=== PATIENT | male | born 1980 | race Caucasian/White ===

== ENCOUNTER 2017-11-22 03:14 | Emergency (ER) | payer OTHER ==
[2017-11-22] MEDS ORDERED: IPRATROPIUM 0.5MG/ALBUTEROL 2.5MG INH SOL UD 3ML (DUONEB)(J7620) As Ordered (04:43)
[2017-11-22] MEDS: IPRATROPIUM 0.5MG/ALBUTEROL 2.5MG INH SOL UD 3ML (DUONEB)(J7620) NEB (04:47)
[2017-11-22] MEDS: predniSONE 20 MG TAB PO (05:01)
== END 2017-11-22 06:01 | disposition home or self-care (01) ==
LOC: M ED 03:14
DX: J45.901 Unspecified asthma with (acute) exacerbation (principal); Z79.51 Long term (current) use of inhaled steroids; F17.210 Nicotine dependence, cigarettes, uncomplicated; F12.20 Cannabis dependence, uncomplicated
CPT/HCPCS: 94640

== ENCOUNTER 2018-04-13 06:34 | Emergency (ER) | payer OTHER ==
[2018-04-13] MEDS: KETOROLAC 60 MG/2 ML VIAL (J1885) IM (07:53)
[2018-04-13] MEDS: METHOCARBAMOL 500 MG TAB PO (07:53)
== END 2018-04-13 09:23 | disposition home or self-care (01) ==
LOC: M ED 06:34
DX: M54.9 Dorsalgia, unspecified (principal); J45.909 Unspecified asthma, uncomplicated; F41.9 Anxiety disorder, unspecified; F32.9 Major depressive disorder, single episode, unspecified; F17.200 Nicotine dependence, unspecified, uncomplicated; Z79.899 Other long term (current) drug therapy
CPT/HCPCS: J1885

== ENCOUNTER 2018-05-19 23:13 | Emergency (ER) | payer OTHER ==
[2018-05-20] MEDS: ALBUTEROL SULFATE 2.5 MG/0.5 ML INH NEB SOLN NEB (00:10)
[2018-05-20] MEDS: dexameTHASONE 20 MG/5 ML VIAL (J1100) IV (00:17)
== END 2018-05-20 01:24 | disposition home or self-care (01) ==
LOC: M ED 05-20 01:24
DX: J45.901 Unspecified asthma with (acute) exacerbation (principal); F17.200 Nicotine dependence, unspecified, uncomplicated; Z79.899 Other long term (current) drug therapy
CPT/HCPCS: J1100

== ENCOUNTER → 2018-09-13 | Outpatient (REF) | payer OTHER ==
[~2018-09-13] MED LIST: /LAMO10TA OR; /QUET10TA; ABIL10TA OR; ADV250INH INH; ALBU83IN INH; BENADRYL; BUSP10TA2 OR; CELE20TA OR; CHLO200T OR; DEPA250T3; DILA100C; EFFE150C OR; IBUP200C25 PO; INCR1INH; IPRATROPIUM/; KLON1TAB; LEVOTAB10; NASA1SPR; PRED20TA PO; PRIMA; PRIMATINE MIST INH; PROAAER10 INH; PROP10TAB OR; PROV90AE; QUET30TA; QUET30TA OR; ROBA500T PO; SERO400T; SERO400T OR; TRAZ100T; TRAZ50TA; TRIL600T OR; TRIM OR; VARE1TA OR; VENTAER; VENTAER IN; VICO5TAB
[2018-09-13 14:18] LABS: ALBUMIN 4.3 GM/DL (3.2-5.2); ALT/SGPT 101 U/L (12-78); BILIRUBIN,DIRECT < 0.1 MG/DL (0.0-0.2); BILIRUBIN,TOTAL 0.3 MG/DL (0.2-1.0); TOTAL PROTEIN 7.7 GM/DL (6.4-8.2)
== END ==
LOC: M SFHCPLAZ 10:52
PROVIDERS: ATTEND Family Medicine
DX: F10.10 Alcohol abuse, uncomplicated (principal)

== ENCOUNTER 2018-11-17 04:58 | Emergency (ER) | payer OTHER ==
[~2018-11-17] VITALS: Ht 180.3 cm; Wt 86.4 kg
[~2018-11-17 04:58] MED LIST changes: -/LAMO10TA OR; -/QUET10TA; +LAMI1TAB7 OR; +SERO1TAB
[2018-11-17] MEDS ORDERED: ARNU1INH3 IN (05:04)
[2018-11-17] MEDS ORDERED: NS 1,000 ML IV ONE (05:30)
[2018-11-17 05:31] LABS: BASO # 0.1 10^3/uL (0.0-0.2); EOS # 0.4 10^3/uL (0.0-0.50); EOS % 5.3 % (0.0-3.0); HEMATOCRIT 50.1 % (42.0-52.0); HEMOGLOBIN 17.1 g/dl (13.5-17.5); LYMPH # 1.6 10^3/uL (1.5-4.5); LYMPH % 22.6 % (24.0-44.0); MEAN CORPUSCULAR HEMOGLOBIN 31.4 pg (27.0-33.0); MEAN CORPUSCULAR HGB CONC 34.1 g/dl (32.0-36.5); MEAN CORPUSCULAR VOLUME 92.1 fl (80.0-96.0); MONO # 0.7 10^3/uL (0.0-0.8); MONO % 9.7 % (0.0-5.0); NEUTROPHILS # 4.3 10^3/uL (1.8-7.7); NEUTROPHILS % 61.1 % (36.0-66.0); PLATELET COUNT, AUTOMATED 293 10^3/uL (150-450); RED BLOOD COUNT 5.44 10^6/uL (4.30-6.10)
[2018-11-17 05:53] LABS: ALBUMIN 4.6 GM/DL (3.2-5.2); ALT/SGPT 70 U/L (12-78); BILIRUBIN,DIRECT 0.4 MG/DL (0.0-0.2); BILIRUBIN,TOTAL 1.4 MG/DL (0.2-1.0); BLOOD UREA NITROGEN 18 MG/DL (7-18); CALCIUM LEVEL 9.6 MG/DL (8.5-10.1); CARBON DIOXIDE LEVEL 26 MEQ/L (21-32); CHLORIDE LEVEL 105 MEQ/L (98-107); CREATININE FOR GFR 1.21 MG/DL (0.70-1.30); GLOMERULAR FILTRATION RATE > 60.0 (>60); GLUCOSE, FASTING 104 MG/DL (70-100); LIPASE 80 U/L (73-393); POTASSIUM SERUM 4.3 MEQ/L (3.5-5.1); SODIUM LEVEL 139 MEQ/L (136-145)
[2018-11-17] MEDS ORDERED: LORazepam 2 MG/ML VIAL (J2060) IV STA (06:24)
[2018-11-17] MEDS ORDERED: ONDANSETRON 4MG/2ML VIAL (J2405) IV ONE (06:30)
[2018-11-17 06:52] LABS: ETHYL ALCOHOL (ETHANOL) < 0.003 % (0.000-0.010)
[2018-11-17] MEDS ORDERED: OXAZEPAM 15 MG CAP PO ONE (07:45)
[2018-11-17 09:15] VITALS: BP 131/76
== END 2018-11-17 09:26 | disposition home or self-care (01) ==
LOC: M ED 04:58
DX: F10.230 Alcohol dependence with withdrawal, uncomplicated (principal); R51 Headache; R53.81 Other malaise; Z72.0 Tobacco use; F12.10 Cannabis abuse, uncomplicated; Z79.899 Other long term (current) drug therapy
CPT/HCPCS: 36415; 80048; 80076; 83690; 85025; 96361; 96374; 96375; 99284; G0480; J2060; J2405

== ENCOUNTER → 2019-04-04 | Outpatient (CLI) | payer OTHER ==
[~2019-04-04] MED LIST changes: +ARNU1INH3 IN
--- NOTE | 2019-04-04 11:54 | REP ---
LEFT HIP SERIES: Two views. HISTORY: Pain. FINDINGS: AP and frog-leg views of the left hip demonstrate a mixed pattern of sclerosis and lucency and a step-off in the superolateral aspect of the femoral head. These findings are somewhat suggestive of avascular necrosis of the femoral head possibly with some early collapse. Mild spurring is suspected as well. IMPRESSION: Possible avascular necrosis of the left femoral head with collapse versus osteoarthritis. MRI study of the left hip recommended. Electronically Signed by Cheikh Felipe MD 04/04/2019 03:25 P
== END ==
LOC: M WUC 09:42
PROVIDERS: ATTEND Physician Assistant
DX: M25.552 Pain in left hip (principal)

== ENCOUNTER → 2019-04-05 | Outpatient (REF) | payer OTHER ==
[2019-04-05 12:55] LABS: BASO # 0.1 10^3/uL (0.0-0.2); BASO % 1.7 % (0.0-1.0); C REACTIVE PROTEIN QUANTITATIV 0.46 MG/DL (0.00-0.30); EOS # 0.9 10^3/uL (0.0-0.5); EOS % 12.4 % (0.0-3.0); HEMATOCRIT 46.4 % (42.0-52.0); HEMOGLOBIN 15.2 g/dl (13.5-17.5); LYMPH # 1.7 10^3/uL (1.5-5.0); LYMPH % 23.4 % (24.0-44.0); MEAN CORPUSCULAR HEMOGLOBIN 30.5 pg (27.0-33.0); MEAN CORPUSCULAR HGB CONC 32.8 g/dl (32.0-36.5); MONO # 0.4 10^3/uL (0.0-0.8); MONO % 5.6 % (0.0-5.0); NEUTROPHILS # 4.1 10^3/uL (1.5-8.5); NEUTROPHILS % 56.8 % (36.0-66.0); PLATELET COUNT, AUTOMATED 418 10^3/uL (150-450); RED BLOOD COUNT 4.99 10^6/uL (4.30-6.10); URIC ACID 5.9 MG/DL (3.5-7.2); WHITE BLOOD COUNT 7.3 10^3/uL (4.0-10.0)
[2019-04-05 13:32] LABS: ERYTHROCYTE SEDIMENTATION RATE 11 mm/hr (0-15)
== END ==
LOC: M SFHCPLAZ 09:18
PROVIDERS: ATTEND Family Medicine
DX: R93.7 Abnormal findings on diagnostic imaging of other parts of musculoskeletal system (principal)

== ENCOUNTER → 2019-04-07 | Outpatient (CLI) | payer OTHER ==
--- NOTE | 2019-04-07 10:52 | REP ---
REASON: Hip pain, left greater than right. PRIORS: None. There is mild left femoral head flattening. There is bilateral curvilinear mixed signal in the femoral head with diffuse T2 hypersignal seen throughout the left femoral head and neck. There is a left hip joint effusion and a very slight right hip joint effusion. There is diffuse T2 hypersignal in the left obturator externus, obturator internus, iliopsoas, vastus intermedius, and vastus lateralis musculature. T12 hypersignal is also seen in the quadratus femoris musculature. T2 hypersignal is also seen in the left acetabulum. IMPRESSION: 1. Diffuse femoral and acetabular edema on the left with mild femoral head collapse and diffuse left hip muscular edema, as described above. This is seen in conjunction with a moderate to large left hip joint effusion. 2. Evidence of right hip AVN. Electronically Signed by Jessee Justin DO 04/07/2019 11:24 A
== END ==
LOC: M RAD 09:03
PROVIDERS: ATTEND Family Medicine
DX: M87.052 Idiopathic aseptic necrosis of left femur (principal)

== ENCOUNTER 2019-05-08 00:45 | Emergency (ER) | payer OTHER ==
[~2019-05-08] VITALS: Ht 180.3 cm; Wt 79.5 kg
[2019-05-08 00:45] VITALS: BP 141/101
[2019-05-08] MEDS ORDERED: TIZA4TAB4 PO (00:53)
[2019-05-08] MEDS ORDERED: ACET-683 PO (00:53)
[2019-05-08] MEDS ORDERED: NAPR-885 PO (00:53)
[2019-05-08] MEDS ORDERED: OXYCODONE/APAP 5MG/325MG(BULK FOR ED) 1 TABLET PO ONE (02:00)
--- NOTE | 2019-05-08 03:48 | REP ---
Clinical: Continued pain. Technique: AP and frog lateral views of the left hip. Comparison: 04/04/19. Findings: Increased sclerosis with very subtle flattening and heterogeneous changes involving the femoral head as well as early marginal spurring similar to prior examination. Associated joint space narrowing is noted. Findings suggest early osteoarthritic changes versus avascular necrosis. Impression: Heterogeneous changes as described above similar to prior examination and consistent with recent MRI findings. No obvious acute fracture. Differential diagnosis includes avascular necrosis as well as osteoarthritic changes. Electronically Signed by Alcon Arreaga MD 05/08/2019 03:39 A
== END 2019-05-08 02:49 | disposition home or self-care (01) ==
LOC: M ED 00:45
DX: M87.059 Idiopathic aseptic necrosis of unspecified femur (principal); F17.200 Nicotine dependence, unspecified, uncomplicated; F12.10 Cannabis abuse, uncomplicated; Z79.899 Other long term (current) drug therapy

== ENCOUNTER → 2019-05-18 | Outpatient (CLI) | payer OTHER ==
[~2019-05-18] MED LIST changes: +ACET-683 PO; +ADVA230A INH; +CYCL10TA PO; +LEVOTAB10 PO; +MELO15TA28 PO; +NAPR-885 PO; +TIZA4TAB4 PO
[2019-05-18 15:08] LABS: HEMATOCRIT 47.1 % (42.0-52.0); HEMOGLOBIN 15.9 g/dl (13.5-17.5); MEAN CORPUSCULAR HEMOGLOBIN 31.5 pg (27.0-33.0); MEAN CORPUSCULAR HGB CONC 33.8 g/dl (32.0-36.5); MEAN CORPUSCULAR VOLUME 93.5 fl (80.0-96.0); PLATELET COUNT, AUTOMATED 430 10^3/uL (150-450); RED BLOOD COUNT 5.04 10^6/uL (4.30-6.10); WHITE BLOOD COUNT 9.3 10^3/uL (4.0-10.0)
[2019-05-18 15:20] LABS: INR 1.02; PROTHROMBIN TIME 13.1 SECONDS (11.8-14.0)
[2019-05-18 15:32] LABS: ERYTHROCYTE SEDIMENTATION RATE 5 mm/hr (0-15)
[2019-05-18 15:48] LABS: ALBUMIN 4.3 GM/DL (3.2-5.2); ALT/SGPT 32 U/L (12-78); BILIRUBIN,TOTAL 0.6 MG/DL (0.2-1.0); BLOOD UREA NITROGEN 17 MG/DL (7-18); CALCIUM LEVEL 9.6 MG/DL (8.5-10.1); CARBON DIOXIDE LEVEL 28 MEQ/L (21-32); CHLORIDE LEVEL 101 MEQ/L (98-107); CREATININE FOR GFR 0.91 MG/DL (0.70-1.30); GLOMERULAR FILTRATION RATE > 60.0 (>60); GLUCOSE, FASTING 95 MG/DL (70-100); POTASSIUM SERUM 4.4 MEQ/L (3.5-5.1); SODIUM LEVEL 136 MEQ/L (136-145); TOTAL PROTEIN 7.5 GM/DL (6.4-8.2)
--- NOTE | 2019-05-18 17:28 | ECGEPIP ---
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 Normal sinus rhythm Prominent precordial voltage without other features to suggest LVH Perhaps still within normal limits for age. Electronically Signed on 05-18-2019 17:28:13 EDT by Andrew Lilly
--- NOTE | 2019-05-18 18:43 | REP ---
HISTORY: Preoperative. COMPARISON: Multiple, the latest portable of 05/19/2018. FINDINGS: The superior mediastinal structures are midline. The cardiac silhouette is unremarkable in size, shape and position. The diaphragmatic surfaces of the lungs are regular and the costophrenic angles are clear. The pulmonary ivan are clear. The imaged osseous structures are intact. IMPRESSION: There is no acute cardiopulmonary disease. Electronically Signed by Jessee Justin DO 05/21/2019 02:34 P
== END ==
LOC: M LAB 14:40
PROVIDERS: ATTEND Orthopaedic Surgery
DX: Z01.818 Encounter for other preprocedural examination (principal); M16.12 Unilateral primary osteoarthritis, left hip

== ENCOUNTER 2019-05-29 21:44 | Emergency (ER) | payer OTHER ==
[~2019-05-29] VITALS: Ht 180.3 cm; Wt 79.5 kg
[2019-05-29 21:44] VITALS: BP 134/95
== END 2019-05-29 23:42 | disposition left against medical advice (07) ==
LOC: M ED 21:44
DX: Z53.21 Procedure and treatment not carried out due to patient leaving prior to being seen by health care provider (principal)

== ENCOUNTER 2019-06-11 05:49 | Inpatient (IN) | payer OTHER ==
--- NOTE | 2019-06-05 16:03 | HPE ---
DATE OF ADMISSION: 06/11/2019 CHIEF COMPLAINT: Left hip pain. HISTORY OF PRESENT ILLNESS: Mr. Messina is a pleasant, 38-year-old male with progressively worsening left hip pain and stiffness. He has failed to improve with conservative treatment. He has elected for surgery for his continued symptoms. He has pain with weightbearing activities and his activities of daily living. X-rays and MRI of his hip are notable for avascular necrosis (AVN) of the left femoral head. He has consented for a left total hip arthroplasty by Dr. Guanako Salinas. Medical optimization was performed by Dr. Paige. ALLERGIES: NO KNOWN DRUG ALLERGIES. CURRENT MEDICATIONS: - gabapentin 300 mg three times - albuterol inhaler - Advair inhaler - Zixol - naproxen 500 mg twice a day as needed - Flexeril PAST MEDICAL HISTORY: Includes asthma. PAST SURGICAL HISTORY: Includes tonsillectomy. SOCIAL HISTORY: This gentleman no longer smokes or dips, and does not drink alcohol. He works as an outside contractor sales. FAMILY HISTORY: Noncontributory. REVIEW OF SYSTEMS: This patient denies chest pain, heart palpitations, cough, wheezing, difficulty breathing and shortness of breath. He denies abdominal pain, nausea, vomiting, diarrhea or constipation. He denies recent upper respiratory infection or urinary tract infection symptoms. He does complain of persistent pain in the left hip and pain with weightbearing activities in the left hip. PHYSICAL EXAMINATION: General: He is well-nourished, well-developed, in no acute distress, alert male patient. He ambulates with a mild limp favoring the left lower extremity. He is not using assistive devices. Vital signs: He is 5 feet 11, weighs 175 pounds with a temperature of 98.3, blood pressure 142/94, pulse of 70, respirations of 14. Neck was supple without adenopathy or jugular venous distension. Lungs were clear to auscultation without rales or wheeze. Heart: Regular rate and rhythm. Abdomen: Bowel sounds were present. Extremities: Examination of the hip revealed intact skin. He had decreased range of motion due to pain and stiffness. The limb is neurovascularly intact. LABORATORY DATA: Chest x-ray showed no acute cardiopulmonary disease processes. EKG showed considerable baseline somatic artifact with normal sinus rhythm at 91 beats per minute. ProTime 13.1, INR 1.02. CBC within normal limits. Sed rate was 5. Glucose 95. BUN 17, creatinine 0.91. Sodium 136, potassium 4.4. IMPRESSION: Symptomatic avascular necrosis of the left hip joint. PLAN: Consented for a left total hip arthroplasty by Dr. Guanako Salinas.
[2019-06-11] VITALS (7 sets, daily range): BP systolic 110–157; BP diastolic 70–100
[~2019-06-11] VITALS: Ht 180.3 cm; Wt 79.4 kg
[2019-06-11] MEDS ORDERED: ACETAMINOPHEN 500 MG TAB PO ONE (06:00)
[2019-06-11] MEDS ORDERED: LR 1,000 ML IV SCH ×2 (06:00→11:00)
[2019-06-11] MEDS ORDERED: ceFAZolin SOD 2 GM in IV 1 EA IV ONE (06:00)
[2019-06-11] MEDS ORDERED: PROPOFOL 200 MG/20 ML VIAL As Ordered ONE ×3 (06:28→08:31)
[2019-06-11] MEDS ORDERED: LIDOCAINE 2% INJ 100 MG/5 ML SDV (FOR ANES.) As Ordered ONE (06:29)
[2019-06-11] MEDS ORDERED: MIDAZOLAM INJ 2 MG/2 ML VIAL (J2250) As Ordered ONE ×2 (06:33→07:52)
[2019-06-11] MEDS ORDERED: fentaNYL 100 MCG/2 ML INJECTION (J3010) As Ordered ONE (06:33)
[2019-06-11] MEDS ORDERED: ceFAZolin 1GM INJ (J0690 PER 500MG) As Ordered ONE (06:50)
[2019-06-11] MEDS ORDERED: BUPIVACAINE/DEXTROSE 0.75% 2 ML AMP As Ordered ONE (07:38)
[2019-06-11] MEDS ORDERED: PHENYLEPHRINE INJ 10MG/ML VIAL (J2370) As Ordered ONE (08:10)
[2019-06-11] MEDS ORDERED: PHENYLephrine HCL 500 MCG/5 ML (100MCG/ML) SYRINGE (J2370) As Ordered ONE (08:19)
[2019-06-11] MEDS ORDERED: ePHEDrine SULFATE 25 MG/5 ML(5MG/ML) SYRINGE As Ordered ONE (08:19)
[2019-06-11] MEDS ORDERED: ONDANSETRON 4MG/2ML VIAL (J2405) As Ordered ONE ×2 (08:36→09:44)
[2019-06-11] MEDS: ONDANSETRON 4MG/2ML VIAL (J2405) IV PRN ×2 (09:45→10:03)
[2019-06-11] MEDS ORDERED: fentaNYL 100 MCG/2 ML INJECTION (J3010) IV PRN (10:00)
[2019-06-11] MEDS ORDERED: PERCOCET 5MG/325MG TAB As Ordered ONE (10:14)
[2019-06-11] MEDS: PERCOCET 5MG/325MG TAB PO PRN ×4 (10:18→19:58)
[2019-06-11] MEDS ORDERED: ACETAMINOPHEN TAB 650MG DOSE (2X325MG) PO PRN (11:00)
[2019-06-11] MEDS ORDERED: HYDROMORPHONE HCL 0.5 MG/ 0.5 ML SYRINGE (J1170 PER 1) IV PRN ×2 (11:00)
[2019-06-11] MEDS ORDERED: FLEET ENEMA PR PRN (11:00)
--- NOTE | 2019-06-11 12:44 | REP ---
LEFT HIP: Two views. HISTORY: Postop. Comparison study May 08, 2019. FINDINGS: The patient is status post left hip arthroplasty. Arthroplasty components appear well aligned. Lateral skin carolyn are noted. IMPRESSION: Status post left hip arthroplasty. Electronically Signed by Cheikh Felipe MD 06/11/2019 12:47 P
[2019-06-11] MEDS ORDERED: PERCOCET 5MG/325MG TAB PO PRN (14:00)
[2019-06-11] MEDS ORDERED: MORPHINE 4 MG/ML 1ML VIAL/SYRINGE (J2270) IV PRN ×2 (14:45)
[2019-06-11] MEDS: ONDANSETRON 4 MG TAB (S0181) PO PRN ×2 (14:48→19:57)
[2019-06-11] MEDS: ceFAZolin SOD 2 GM in IV 1 EA IV SCH ×2 (14:48→20:50)
[2019-06-11] MEDS: ADVAIR HFA 115/21MCG INHALER INH SCH (20:00)
[2019-06-11] MEDS ORDERED: ADVAIR HFA 230/21MCG INHALER INH SCH (20:00)
[2019-06-11] MEDS ORDERED: ALBUTEROL 90 MCG/ACT 8GM HFA INHALER INH PRN (23:15)
[2019-06-11] MEDS ORDERED: ALBUTEROL SULFATE 2.5 MG/0.5 ML INH NEB SOLN NEB PRN (23:15)
[2019-06-11] MEDS ORDERED: AIRD1INH2 INH (23:38)
[2019-06-12 02:00] VITALS: BP 127/83
[2019-06-12] MEDS: ceFAZolin SOD 2 GM in IV 1 EA IV SCH (02:17)
[2019-06-12] MEDS: PERCOCET 5MG/325MG TAB PO PRN ×3 (02:18→11:41)
[2019-06-12 05:00] VITALS: BP 124/85
[2019-06-12 06:28] LABS: HEMATOCRIT 35.5 % (42.0-52.0); HEMOGLOBIN 11.9 g/dl (13.5-17.5); MEAN CORPUSCULAR HEMOGLOBIN 30.5 pg (27.0-33.0); MEAN CORPUSCULAR HGB CONC 33.5 g/dl (32.0-36.5); PLATELET COUNT, AUTOMATED 331 10^3/uL (150-450); WHITE BLOOD COUNT 8.5 10^3/uL (4.0-10.0)
[2019-06-12] MEDS ORDERED: PERC5TAB12 PO (06:37)
[2019-06-12] MEDS ORDERED: XARE10TA PO (06:37)
[2019-06-12 06:39] LABS: INR 1.11
[2019-06-12] MEDS: ONDANSETRON 4 MG TAB (S0181) PO PRN (06:45)
[2019-06-12 06:53] LABS: BLOOD UREA NITROGEN 9 MG/DL (7-18); CALCIUM LEVEL 8.8 MG/DL (8.5-10.1); CARBON DIOXIDE LEVEL 27 MEQ/L (21-32); CHLORIDE LEVEL 102 MEQ/L (98-107); CREATININE FOR GFR 0.94 MG/DL (0.70-1.30); GLOMERULAR FILTRATION RATE > 60.0 (>60); GLUCOSE, FASTING 127 MG/DL (70-100); POTASSIUM SERUM 3.5 MEQ/L (3.5-5.1); SODIUM LEVEL 136 MEQ/L (136-145)
[2019-06-12] MEDS: ADVAIR HFA 115/21MCG INHALER INH SCH (07:38)
[2019-06-12] MEDS ORDERED: MIRALAX *UNIT DOSE* 17GM PACKET PO SCH (09:00)
[2019-06-12] MEDS ORDERED: MOM 30ML SUSPENSION UDC PO SCH (09:00)
[2019-06-12 10:00] VITALS: BP 154/97
[2019-06-12] MEDS ORDERED: RIVAROXABAN 10 MG TAB (XARELTO) PO SCH (18:00)
--- NOTE | 2019-06-13 09:56 | RO ---
DATE OF PROCEDURE: 06/11/2019 PREOPERATIVE DIAGNOSIS: Left hip osteonecrosis with degenerative arthritis. POSTOPERATIVE DIAGNOSIS: Left hip osteonecrosis with degenerative arthritis. PROCEDURE: Left total hip arthroplasty using a size 54 Gription cup with a 54 ceramic neutral liner and a 36 mm ceramic head with an 8.5 mm neck and a size 7 [place] stem standard offset. Prosthesis made by Michael and Michael[employer]De[employer]. SURGEON: Dr. Hugh Salinas STAFFING RN: CASTRO Amor ANESTHESIA: Spinal. COMPLICATIONS: None. SPECIMENS: Femoral head. ESTIMATED BLOOD LOSS: 200 mL. FINDINGS: He had essentially complete degloving of the articular cartilage surface of the entire femoral head. PROCEDURE: Antibiotics were given preoperatively. Successful spinal anesthetic was induced. He was placed in the lateral decubitus position, left hip uppermost, down leg well padded, especially the peroneal nerve. An axillary roll was utilized. The left hip area was then carefully prepped and draped in the usual sterile fashion after appropriate time-out. A longitudinal incision was made for a direct anterolateral approach to the hip. Bovie cautery used to coagulate crossing vessels down to the tensor fascia, which was then divided in line with the skin incision. The gluteus medius split in the anterior one-third posterior two third junction and we dissected down onto the femoral neck and carefully dissected the tissues off the anterior aspect of the femur as we externally rotated and dislocated the hip noting the complete degloving in the articular cartilage of his left hip. The piriformis fossa was identified. Starter reamer was placed, followed by the canal finding reamer and the lateralizing reamer. Then, we reamed up to a size 7 and we began broaching up to a size 7. We then exposed the acetabulum. Performed a labral excision. Removed the deep pulvinar type tissues that were within the depths of the acetabulum and began reaming beginning at 48 up to 53, and the trial 54 fit nicely using the extramedullary alignment jig to help set version and abduction. We then copiously irrigated, then placed the real 54 cup. It fit nicely. Central hole eliminator placed and the ceramic liner placement. We then exposed the femur and placed the trial #7 broach and began trialing first with a 1.5 standard offset, which was to the cup, was actually in good position with good stability to flexion internal rotation with abduction as well as external rotation and extension. However, there was quite a bit of soft tissue telescoping indicating we need a better length. The 8.5 fit the best. This minimized his telescoping and I did not want to go any longer than that, did not think it was necessary. The hip remained good and stable in flexion internal rotation and extension external rotation with an 8.5 mm length neck. We then removed all the trial components, the copiously pulsatile lavage, irrigated out the femoral canal as we did several times throughout the operation, then placed the real #7 stem. Dried the trunnion of the stem. Placed the 8.5 neck length 36 mm ceramic head into the trunnion making sure it was secure with several small light blows to the head with the impactor and then reduced the hip. We copiously irrigated and then closed anatomically the anterior capsule and gluteus minimus and medius layer back anatomically with several interrupted #1 PDS sutures. We then irrigated again, then closed the tensor fascia with a several interrupted #1 PDS sutures irrigating between layers, then closed deep subdermal tissues with interrupted #2-0 PDS sutures. The skin was closed with carolyn covered by an Optifoam dry sterile bulky dressing. He was then turned supine and then transferred to the recovery room in stable condition. There were no intraoperative complications. Isaias Barraza was critical to the success of this difficult operation in this young, 38-year-old by helping with appropriate soft tissue retraction, helped to dislocate and relocate the hip several times throughout the operation and helped to close the wound, prepare the patient amongst many other tasks to allow me to perform the operation smoothly, efficiently and safely. Edited: 06/13/2019 0954 hilda
== END 2019-06-12 13:00 | disposition home or self-care (01) | DRG 301 ==
LOC: M OR 05:49 → M MS5PR 12:20
PROVIDERS: ADMIT Orthopaedic Surgery; ATTEND Orthopaedic Surgery
PROC: 0SRB0JA Replacement of Left Hip Joint with Synthetic Substitute, Uncemented, Open Approach (ICD-10-PCS; principal; 2019-06-11 07:30)
DX: M87.052 Idiopathic aseptic necrosis of left femur (principal); J45.909 Unspecified asthma, uncomplicated; Z79.899 Other long term (current) drug therapy; M16.12 Unilateral primary osteoarthritis, left hip

== ENCOUNTER 2019-06-15 08:58 | Emergency (ER) | payer OTHER ==
[~2019-06-15] VITALS: Ht 180.3 cm; Wt 76.5 kg
[~2019-06-15 08:58] MED LIST changes: +AIRD1INH2 INH; +PERC5TAB12 PO; +XARE10TA PO
[2019-06-15] MEDS ORDERED: ELIQ5TAB PO (09:10)
--- NOTE | 2019-06-15 10:06 | REP ---
KUB ABDOMEN AND PELVIS: KUB film of abdomen and pelvis performed. Bowel gas pattern is normal with no obstruction. Tiny phleboliths are seen in the pelvis. Metallic prosthesis is noted of the left hip. IMPRESSION: Unremarkable KUB. Electronically Signed by Maurice Mcgowan MD 06/18/2019 09:06 A
[2019-06-15 10:27] LABS: BASO % 0.2 % (0.0-1.0); EOS % 0.2 % (0.0-3.0); HEMATOCRIT 35.2 % (42.0-52.0); HEMOGLOBIN 11.4 g/dl (13.5-17.5); LYMPH # 0.5 10^3/uL (1.5-5.0); LYMPH % 5.4 % (24.0-44.0); MEAN CORPUSCULAR HGB CONC 32.4 g/dl (32.0-36.5); MEAN CORPUSCULAR VOLUME 92.6 fl (80.0-96.0); MONO # 0.8 10^3/uL (0.0-0.8); MONO % 8.8 % (0.0-5.0); NEUTROPHILS % 84.9 % (36.0-66.0); PLATELET COUNT, AUTOMATED 434 10^3/uL (150-450); WHITE BLOOD COUNT 9.5 10^3/uL (4.0-10.0)
[2019-06-15] MEDS ORDERED: ISOVUE-370 76% 100ML VIAL (Q9967) As Ordered ONE (10:27)
[2019-06-15] MEDS ORDERED: NS 1,000 ML IV ONE (10:45)
[2019-06-15 10:59] LABS: ALBUMIN 3.1 GM/DL (3.2-5.2); BILIRUBIN,DIRECT 0.2 MG/DL (0.0-0.2); BILIRUBIN,TOTAL 0.6 MG/DL (0.2-1.0); TOTAL PROTEIN 6.7 GM/DL (6.4-8.2)
[2019-06-15] MEDS ORDERED: METHYLNALTREXONE BROMIDE 12 MG/0.6 ML VIAL (RELISTOR) SC ONE (11:30)
--- NOTE | 2019-06-15 11:55 | REP ---
CT abdomen and pelvis with IV but without oral contrast: History: Diffuse abdominal pain. No bowel movement times 5 days. Comparison KUB study 9:28 a.m. on this date. Recent left hip arthroplasty. CT contrast dose: 100 mL of intravenous Isovue 370. Findings: Digital preliminary iron caster radiograph demonstrates lateral skin carolyn and some soft tissue swelling and emphysema about the left hip arthroplasty. There is air and stool in the distal colon and some air and fluid in the transverse colon. Bowel gas pattern is unremarkable. The lung bases are clear on axial CT images. The liver and the spleen are normal in size, homogeneous in texture. There are three small accessory splenules visible. No abnormality is noted in the gallbladder or pancreas. No adrenal lesion is seen on either side. The kidneys enhance symmetrically. They appear morphologically intact. There is a calcific density in the upper pole collecting system on the right consistent with a 2-3 mm calculus. No hydronephrosis is seen. No retroperitoneal mass or adenopathy is observed. Small bowel loops are unremarkable. There is moderate predominately liquid content throughout the colon from cecum through the descending colon. Formed stool is seen in the rectum and sigmoid colon. The proximal colon is mildly dilated. The ascending colon measures up to 7.5 cm in transverse dimension. There is minimal diffuse colonic mural thickening. Urinary bladder, prostate, and seminal vesicles are unremarkable. No bony lesion is seen. Impression: Mild ileus versus enteritis pattern affecting the colon with mild distension of the proximal colon predominantly liquid content. No obstructive lesion is seen. Normal appendix is visible. Otherwise negative. Electronically Signed by Cheikh Felipe MD 06/15/2019 02:10 P
[2019-06-15 12:32] VITALS: BP 123/73
== END 2019-06-15 12:40 | disposition home or self-care (01) ==
LOC: M ED 08:58
DX: K59.09 Other constipation (principal); F11.988 Opioid use, unspecified with other opioid-induced disorder; F17.220 Nicotine dependence, chewing tobacco, uncomplicated; F12.10 Cannabis abuse, uncomplicated
CPT/HCPCS: 74018; 74177; 80047; 80076; 83690; 85025; 96360; 96372; 99284; Q9967

== ENCOUNTER → 2019-09-12 | Outpatient (CLI) | payer MEDICAID, OTHER, SELFPAY ==
[~2019-09-12] MED LIST changes: +ELIQ5TAB PO
--- NOTE | 2019-09-12 09:28 | PFTRPT ---
Site: [facility], [address] [place] [address], [id number] ID: [id number] Name: THOMPSON LEROY Visit Date: 09/12/2019 Second ID: [id number] Referring Doctor: Zhoa Cortes DO Reviewing Doctor: Slava Loaiza MD Trolley Operator: Nishi Andrew Age: 39 : 1980 Sex: Male Race: Height: 71.00 Inches Weight: 190.00 Lbs BSA: 2.06 Order IDs: [id number] Requested Test(s): <RESP-PFT.DLCO> Diagnosis: J45.40 test meet the ATS standards for acceptability and repeatability. Pt was given four puffs of albuterol for postbronchodilator. Review Status: Not Reviewed Pre-Bronch Post-Bronch Pred Actual %Pred Actual %Chng SPIROMETRY FVC (L) 5.48 4.86 88 4.71 -3 FEV1 (L) 4.36 3.54 81 3.66 3 FEV1/FVC (%) 80 73 91 78 6 FEF 25% (L/sec) 8.10 7.12 87 7.08 FEF 50% (L/sec) 5.21 3.32 63 3.66 10 FEF 75% (L/sec) 1.93 0.93 48 1.19 27 FEF 25-75% (L/sec) 4.11 2.55 62 2.92 14 FEF Max (L/sec) 10.41 8.44 81 8.90 5 FIVC (L) 4.10 4.71 14 FIF 50% (L/sec) 5.26 3.48 66 2.24 -35 FIF Max (L/sec) 3.81 4.30 12 MVV (L/min) 170 135 79 Expiratory Time (sec) 7.42 7.52 1 Back Extrap Vol (L) 0.17 0.10 -40 Time To FEFmax (sec) 0.093 0.067 -28 LUNG VOLUMES SVC (L) 5.26 4.93 93 IC (L) 3.56 3.64 102 ERV (L) 1.70 1.29 76 TGV (L) 3.57 3.97 111 RV (Pleth) (L) 1.87 2.68 143 TLC (Pleth) (L) 7.13 7.61 106 RV/TLC (Pleth) (%) 26 35 135 DIFFUSION DLCOunc (ml/min/mmHg) 33.62 31.44 93 DLCOcor (ml/min/mmHg) 33.62 31.99 95 DL/VA (ml/min/mmHg/L) 4.72 4.93 104 VA (L) 7.13 6.50 91 BHT (sec) 10.29 IVC (L) 4.79 TLC (SB) (L) 6.65 AIRWAYS RESISTANCE Raw (cmH2O/L/s) 1.45 1.58 108 Gaw (L/s/cmH2O) 1.03 0.64 61 sRaw (cmH2O*s) 4.76 6.53 137 sGaw (1/cmH2O*s) 0.20 0.15 76 BLOOD GASES Hgb (gm/dL) 14.0
== END ==
LOC: M CARPUL 08:43
PROVIDERS: ATTEND Family Medicine
DX: J45.40 Moderate persistent asthma, uncomplicated (principal)

== ENCOUNTER → 2020-01-03 | Outpatient (CLI) | payer OTHER ==
[~2020-01-03] MED LIST changes: +ASPI81TA85 PO; +CYCL-707 PO; -CYCL10TA PO
[2020-01-03 08:57] LABS: HEMATOCRIT 43.1 % (42.0-52.0); HEMOGLOBIN 14.3 g/dl (13.5-17.5); MEAN CORPUSCULAR HEMOGLOBIN 29.6 pg (27.0-33.0); MEAN CORPUSCULAR HGB CONC 33.2 g/dl (32.0-36.5); MEAN CORPUSCULAR VOLUME 89.2 fl (80.0-96.0); PLATELET COUNT, AUTOMATED 317 10^3/uL (150-450); RED BLOOD COUNT 4.83 10^6/uL (4.30-6.10); WHITE BLOOD COUNT 6.2 10^3/uL (4.0-10.0)
[2020-01-03 09:30] LABS: ERYTHROCYTE SEDIMENTATION RATE 6 mm/hr (0-15)
[2020-01-03 09:34] LABS: ALBUMIN 3.9 GM/DL (3.2-5.2); ALT/SGPT 46 U/L (12-78); BILIRUBIN,TOTAL 0.3 MG/DL (0.2-1.0); BLOOD UREA NITROGEN 20 MG/DL (7-18); CALCIUM LEVEL 9.1 MG/DL (8.5-10.1); CARBON DIOXIDE LEVEL 27 MEQ/L (21-32); CHLORIDE LEVEL 107 MEQ/L (98-107); CREATININE FOR GFR 0.95 MG/DL (0.70-1.30); GLOMERULAR FILTRATION RATE > 60.0 (>60); GLUCOSE, FASTING 101 MG/DL (70-100); POTASSIUM SERUM 4.7 MEQ/L (3.5-5.1); SODIUM LEVEL 138 MEQ/L (136-145); TOTAL PROTEIN 7.3 GM/DL (6.4-8.2)
[2020-01-03 09:42] LABS: INR 0.94; PROTHROMBIN TIME 12.3 SECONDS (11.8-14.0)
--- NOTE | 2020-01-03 15:34 | REP ---
TWO-VIEW CHEST: REASON FOR EXAM: Preoperative evaluation. COMPARISON: Multiple, the latest 05/18/2019. FINDINGS: The superior mediastinal structures are midline. The cardiac silhouette is unremarkable in size, shape, and position. The diaphragmatic surfaces of the lungs are regular, and the costophrenic angles are clear. The pulmonary ivan are clear. The imaged osseous structures are intact. IMPRESSION: There is no acute cardiopulmonary disease. Electronically Signed by Jessee Justin DO 01/03/2020 05:06 P
--- NOTE | 2020-01-03 21:10 | ECGEPIP ---
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
== END ==
LOC: M LAB 08:07
PROVIDERS: ATTEND Orthopaedic Surgery
DX: Z01.818 Encounter for other preprocedural examination (principal); M16.12 Unilateral primary osteoarthritis, left hip; J45.909 Unspecified asthma, uncomplicated

== ENCOUNTER → 2020-01-06 | Outpatient (CLI) | payer OTHER | LOC: M LABSMTC 09:42 | PROVIDERS: ATTEND Anesthesiology | DX: Z03.818 Encounter for observation for suspected exposure to other biological agents ruled out (principal); Z11.59 Encounter for screening for other viral diseases | CPT/HCPCS: C9803; U0003 ==

== ENCOUNTER 2020-01-09 06:12 | Inpatient (IN) | payer OTHER ==
--- NOTE | 2020-01-08 17:23 | HPE ---
DATE OF ADMISSION: 01/09/2020 ATTENDING PHYSICIAN: Dr. Guanako Salinas CHIEF COMPLAINT: Right hip pain and stiffness. HISTORY: This is a pleasant 39-year-old male patient with progressively worsening right hip pain and stiffness who has failed to improve with conservative treatment. He has elected for surgery for his continued symptoms. He has continued pain with weightbearing activities of daily living. X-rays of the hip have shown advanced avascular necrosis and he has consented for a right total hip arthroplasty by Dr. Salinas. ALLERGIES: No known drug allergies. MEDICATIONS: - gabapentin 300 three times a day - albuterol inhaler - Advair inhaler - naproxen 500 mg twice a day as needed - Flexeril as needed PAST MEDICAL HISTORY: Includes asthma, avascular necrosis. PAST SURGICAL HISTORY: Includes tonsillectomy, left hip total arthroplasty. SOCIAL HISTORY: The patient no longer uses tobacco products and does not use alcohol. FAMILY HISTORY: Noncontributory. REVIEW OF SYSTEMS: Denies fever, chills, chest pain, shortness breath, nausea, vomiting, diarrhea, recent upper respiratory or urinary tract infection symptoms. Reports pain in the right hip with weightbearing activities. PHYSICAL EXAMINATION: Height 5 feet, 11 inches, weight 195, temperature 97.5, pulse 65, respirations 16, blood pressure 160/82. He is normocephalic, atraumatic, well-developed, well-nourished in no apparent distress. Neck is supple and nontender with no lymphadenopathy or jugular venous distention (JVD). S1, S2 auscultated with no murmurs, rubs or gallops. Lungs are clear to auscultation bilaterally. Abdomen is soft, nontender. The right lower extremity is well-perfused and has intact skin, some discomfort throughout range of motion of the right hip. Neurovascular status is intact. Chest x-ray with no acute cardiopulmonary disease. EKG: Sinus rhythm. LABORATORY DATA: White count 6.2, red count 4.3, hemoglobin 14.3, hematocrit 43.1, ESR 6. BUN 20, creatinine 0.95. PT 12.3, INR 0.94. Medical optimization by Dr. Cortes was obtained by the patient but is available for review today on the chart. IMPRESSION: Symptomatic avascular necrosis of the right hip. PLAN: The patient has a negative COVID test and pending review of optimization by Dr. Cortes, we will proceed with right total hip arthroplasty by Dr. Salinas on 01/09/2020.
[~2020-01-09] VITALS: Ht 180.3 cm; Wt 88.0 kg
[2020-01-09] VITALS (7 sets, daily range): BP systolic 113–137; BP diastolic 82–88
[~2020-01-09 06:12] MED LIST changes: +ACETAMINOPHEN 500 MG TAB PO ONE; -ASPI81TA85 PO; +LIDOCAINE 1% MDV 20ML VIAL SQ PRN; +LR 1,000 ML IV ONE; +ceFAZolin SOD 2 GM in IV 1 EA IV ONE
[2020-01-09] MEDS ORDERED: ceFAZolin 1GM VIAL (J0690 PER 500MG) As Ordered ONE (06:49)
[2020-01-09] MEDS ORDERED: EPINEPHrine INJ 1 MG/ML 1ML AMP As Ordered ONE (06:50)
[2020-01-09] MEDS ORDERED: propofoL 200 MG/20 ML VIAL As Ordered ONE ×6 (06:56→09:17)
[2020-01-09] MEDS ORDERED: MIDAZOLAM INJ 2MG/2ML VIAL (J2250 PER 1MG) As Ordered ONE (06:56)
[2020-01-09] MEDS ORDERED: LIDOCAINE 2% 100MG/5ML SDV (FOR ANES.) As Ordered ONE (06:56)
[2020-01-09] MEDS ORDERED: ONDANSETRON 4MG/2ML VIAL As Ordered ONE (06:56)
[2020-01-09] MEDS ORDERED: fentaNYL 100 MCG/2 ML INJECTION (J3010) As Ordered ONE (06:56)
[2020-01-09] MEDS ORDERED: BUPIVACAINE/DEXTROSE 0.75% 2 ML AMP As Ordered ONE (06:57)
[2020-01-09] MEDS ORDERED: ACETAMINOPHEN 1000MG 100ML IV BTL (OFIRMEV) (J0131 PER 10MG) As Ordered ONE (08:03)
[2020-01-09] MEDS ORDERED: PHENYLephrine HCL 500 MCG/5 ML (100MCG/ML) SYRINGE (J2370) As Ordered ONE ×2 (09:02→09:50)
[2020-01-09] MEDS: LR 1,000 ML IV SCH ×4 (10:06→20:30)
[2020-01-09] MEDS: oxyCODONE 5MG TAB PO PRN ×2 (10:24→10:57)
[2020-01-09] MEDS ORDERED: ACETAMINOPHEN TAB 650MG DOSE (2X325MG) PO PRN (10:30)
[2020-01-09] MEDS ORDERED: HYDROMORPHONE HCL 0.5 MG/ 0.5 ML SYRINGE (J1170 PER 1) IV PRN (10:30)
[2020-01-09] MEDS ORDERED: fentaNYL 100 MCG/2 ML INJECTION (J3010) IV PRN (10:30)
[2020-01-09] MEDS ORDERED: ONDANSETRON 4MG/2ML VIAL IV PRN ×2 (10:30)
[2020-01-09] MEDS ORDERED: PERCOCET 5MG/325MG TAB PO PRN ×3 (10:30→17:15)
--- NOTE | 2020-01-09 10:51 | REP ---
Clinical: Status post right arthroplasty. Technique: AP and cross-table lateral views. Findings: The patient is status post right hip replacement with normal positioning and appearance to the femoral and acetabular components. Overlying postsurgical changes appreciated. Impression: Satisfactory right hip replacement radiographs. Electronically Signed by Alcon Arreaga MD 01/09/2020 10:43 A
[2020-01-09] MEDS: NICOTINE 14 MG/24 HR TRANSDERMAL TD SCH (13:22)
[2020-01-09] MEDS: MORPHINE 4 MG/ML 1ML VIAL/SYRINGE (J2270) IV PRN ×2 (14:31→20:04)
[2020-01-09] MEDS: ceFAZolin SOD 2 GM in IV 1 EA IV SCH (16:42)
[2020-01-09] MEDS: PERCOCET 5MG/325MG TAB PO PRN ×2 (17:31→21:57)
[2020-01-09] MEDS ORDERED: diphenhydrAMINE 25MG CAP PO PRN (19:45)
[2020-01-09] MEDS: ASPIRIN 81 MG ENTERIC TAB PO SCH (20:04)
[2020-01-09] MEDS: CYCLOBENZAPRINE 10MG TABLET PO SCH (20:04)
[2020-01-10] MEDS: ceFAZolin SOD 2 GM in IV 1 EA IV SCH ×2 (00:22→08:00)
[2020-01-10 02:00] VITALS: BP 129/84
[2020-01-10] MEDS: PERCOCET 5MG/325MG TAB PO PRN ×5 (04:29→21:50)
[2020-01-10 06:00] VITALS: BP 143/98
[2020-01-10] MEDS ORDERED: ASPI81TA85 PO (06:44)
[2020-01-10] MEDS ORDERED: PERC5TAB12 PO (06:44)
[2020-01-10] MEDS: MIRALAX *UNIT DOSE* 17GM PACKET PO SCH (08:50)
[2020-01-10] MEDS: MOM 30ML SUSPENSION UDC PO SCH (08:50)
[2020-01-10] MEDS: CYCLOBENZAPRINE 10MG TABLET PO SCH ×3 (08:51→20:21)
[2020-01-10] MEDS: ASPIRIN 81 MG ENTERIC TAB PO SCH ×2 (08:51→20:21)
[2020-01-10] MEDS: NICOTINE 14 MG/24 HR TRANSDERMAL TD SCH (08:52)
[2020-01-10] MEDS: ONDANSETRON 4 MG TAB PO PRN ×2 (12:57→17:16)
[2020-01-10] MEDS ORDERED: CEPHALEXIN 500 MG CAP PO ONE (13:00)
--- NOTE | 2020-01-10 13:52 | RO ---
DATE OF PROCEDURE: 01/09/2020 PREPROCEDURE DIAGNOSIS: Right hip osteonecrosis with degenerative arthritis. POSTPROCEDURE DIAGNOSIS: Right hip osteonecrosis with degenerative arthritis. PROCEDURE: Right total hip arthroplasty using a size 54 mm Gription cup with a 36 ceramic liner and a 36 mm ceramic head with 8.5 mm neck and a high offset #7 Wilson stem . Prosthesis made by [employer]. SURGEON: Dr. Hugh Salinas. COMPANY DANCER: [employer] ANESTHESIA: Spinal. COMPLICATION: None. ESTIMATED BLOOD LOSS: 200 mL. SPECIMENS: Femoral head. FINDINGS: He had extensive osteonecrosis of the femoral head. The entire articular cartilage surface was undermined and unstable consistent with his underlying osteonecrosis. DESCRIPTION OF PROCEDURE: Antibiotics were given intravenously, preoperatively and successful spinal anesthetic was induced. He was placed in the lateral decubitus position with a Afshin head positioner, down leg well padded, especially the peroneal nerve and an axillary role was utilized. His right hip area was carefully prepped and draped in the usual sterile fashion. After appropriate time-out, a standard longitudinal incision was made for a lateral approach. Bovie cautery was used to coagulate the crossing vessels. The tensor fascia divided. Gluteus medius splint in the anterior one-third, posterior two-third junction carefully dissecting from the proximal anterior femur down to the gluteus minimus and anterior hip capsule and eventually, we were able to dislocate the hip anteriorly. It is noteworthy that there is quite an effusion with serous fluid in the hip joint and the femoral head was completely denuded and undermined and the articular cartilage surface was unstable. Piriformis fossa was identified, starter reamer placed, followed by the canal reamer and then the lateralizing reamer then reamed up to a size 7. Femoral neck osteotomy was performed using the guide. We broached up to a size 7 making sure we matched the version of his reno-sparks proximal femur. I then exposed the acetabulum, performed a labral excision 360 degrees then began reaming at 48 mm advancing to 53. A 54 trial fit nicely. We then, using the extramedullary guide set our abduction and inversion, we inserted the cup. It was very stable. We placed the trial polyethylene and the copiously irrigated out the femoral canal. Placed the trial broach and then began a series of trial reductions. First, with a standard offset 1.5 x 36 mm neck and reduced the hip. It was very stable to flexion and internal rotation, however, in extension and external rotation, it easily dislocated with any external rotation and extension. There was quite a bit of soft tissue telescoping, thus I elected to trial an 8.5 standard offset stem and he still had very good stability with flexion and internal rotation but in extension and external rotation, the soft tissue telescoping is much better, however, he still has a tendency to dislocate very early on in external rotation with the leg extended. I did not think this would be acceptable. Thus, at this point, I trialled with high offset. This clearly did not make a bit of a difference, but there was still some impingement, not on the cup but there was some impingement posteriorly and inferiorly in extension. There was a bony rim impingement. Thus, I removed all the trial components at this point and exposed the anterior, inferior, and posterior aspect of the acetabular rim and I carefully cleared it of soft tissue with a Bovie cautery and then used a large rongeur to rongeur the rim back. Then I did another trial reduction again after reinserting all the trial componentry. He still had a tendency to externally rotate. Even though the cup looked absolutely anatomic in terms of its version and abduction as it was lint to line on the anterior rim of the acetabulum as it was on the posterior rim. However, I felt that the cup needed to be retroverted in order to help prevent anterior dislocation. Thus, I removed all the trial components including the trial polyethylene of the acetabulum. I re-inserted the drain cleaner and carefully removed the cup and then cleared it of all the bony and soft tissue on the backside of the cup for re-implantation. The 53 mm reamer was re-inserted and then I reinserted the cup using the extramedullary alignment jig and making sure that I corrected the version into more retroversion. Once that was set, the cup did fit nicely. I replaced the polyethylene trial and then we did another series of reductions with the 8.5 high offset stem. This did improve his extension, external rotation instability, however, it still I did not think was acceptable. He was still very stable with flexion and internal rotation. Thus, I did feel he still had room to go in terms of retrograding the cup further. This was a very unusual situation. I never retroverted the cup such as this. But this seemed to be what his anatomy dictated. Thus I did remove the trial componentry once again, re-inserted the acetabular handle and then readjusted the version even into more retroversion and impaled the cup and it still had good stability. Then I re-inserted the trials and then reduced the hip and brought it through a range of motion again. He was very stable with flexion and internal rotation. Even with that adduction, thus we were okay in that plane. However, in extension and external rotation, he clearly had better motion before dislocating anteriorly. That is in full extension. I could actually move beyond 45 degrees and he still remained stable. Thus, I felt this was the acceptable position for the cup. All the trial components were then removed again. Copiously irrigating out the acetabulum, placed a central hole eliminator. Then placed the real ceramic acetabular liner and made sure it seated properly. We then irrigated out the femoral canal as I did several times throughout the surgery and placed the real high offset #7 Wilson stem. Actually, prior to doing this, I did do a trial reduction once again going back, to the non-high offset stem and I felt the high offset gave better stability. Nonetheless, I then inserted the real stem, it fit nicely. Dried the trunion and placed the real 8.5 x 36 mm ceramic ball. Then reduced the hip. Brought it through a range of motion. Again, he was much more stable with flexion, internal rotation and extension external rotation and minimal soft tissue telescoping at this point. We copiously irrigated and anatomically closed the gluteus minimus and anterior hip capsular back anatomically with interrupted #1 PDS sutures. The gluteus medius was closed back anatomically with interrupted #1 PDS sutures and over-sewed the gluteus medius muscle layer over the repair and then irrigated again between layers, closed the tensor fascia with a combination of #1 PDS sutures and a running #1 Stratafix. Deep soft tissues were irrigated with sterile saline. Then the skin was closed with interrupted #2-0 PDS suture and carolyn covered by a Optifoam, dry sterile bulky dressing. He was then turned supine and transferred to the recovery room in stable condition. There were no intraoperative complications. Ms. Jemima Napier was very critical to the success of this very difficult surgery because of multiple times we had to dislocate and re-locate the hip. Helped to manipulate the leg as needed. Helped with the appropriate soft tissue retraction and helped to prepare the patient for surgery and helped to close the wound amongst many other tasks to allow me to perform the operating smoothly, efficiently and safely.
[2020-01-10 14:00] VITALS: BP 148/84
[2020-01-10 22:00] VITALS: BP 131/84
[2020-01-11] MEDS: PERCOCET 5MG/325MG TAB PO PRN ×3 (01:57→09:58)
[2020-01-11 02:00] VITALS: BP 127/82
[2020-01-11 06:00] VITALS: BP 133/82
[2020-01-11 06:18] VITALS: BP 133/82
[2020-01-11] MEDS: ONDANSETRON 4 MG TAB PO PRN (06:18)
[2020-01-11 07:11] LABS: HEMATOCRIT 34.5 % (42.0-52.0); HEMOGLOBIN 11.5 g/dl (13.5-17.5); MEAN CORPUSCULAR HEMOGLOBIN 29.8 pg (27.0-33.0); MEAN CORPUSCULAR HGB CONC 33.3 g/dl (32.0-36.5); MEAN CORPUSCULAR VOLUME 89.4 fl (80.0-96.0); PLATELET COUNT, AUTOMATED 257 10^3/uL (150-450); RED BLOOD COUNT 3.86 10^6/uL (4.30-6.10); WHITE BLOOD COUNT 7.3 10^3/uL (4.0-10.0)
[2020-01-11 07:36] LABS: ALBUMIN 3.1 GM/DL (3.2-5.2); ALT/SGPT 25 U/L (12-78); BLOOD UREA NITROGEN 12 MG/DL (7-18); CALCIUM LEVEL 8.5 MG/DL (8.5-10.1); CARBON DIOXIDE LEVEL 29 MEQ/L (21-32); CHLORIDE LEVEL 100 MEQ/L (98-107); GLOMERULAR FILTRATION RATE > 60.0 (>60); GLUCOSE, FASTING 95 MG/DL (70-100); POTASSIUM SERUM 3.7 MEQ/L (3.5-5.1); SODIUM LEVEL 132 MEQ/L (136-145); TOTAL PROTEIN 6.9 GM/DL (6.4-8.2)
[2020-01-11] MEDS: NICOTINE 14 MG/24 HR TRANSDERMAL TD SCH (09:00)
[2020-01-11] MEDS: ASPIRIN 81 MG ENTERIC TAB PO SCH (09:55)
[2020-01-11] MEDS: MIRALAX *UNIT DOSE* 17GM PACKET PO SCH (09:55)
[2020-01-11] MEDS: CYCLOBENZAPRINE 10MG TABLET PO SCH (09:55)
[2020-01-11] MEDS: MOM 30ML SUSPENSION UDC PO SCH (09:55)
== END 2020-01-11 11:40 | disposition home or self-care (01) | DRG 301 ==
LOC: M OR 06:12 → M MS5PR 11:30
PROVIDERS: ADMIT Orthopaedic Surgery; ATTEND Orthopaedic Surgery
PROC: 0SR90JZ Replacement of Right Hip Joint with Synthetic Substitute, Open Approach (ICD-10-PCS; principal; 2020-01-09 07:30)
DX: M16.11 Unilateral primary osteoarthritis, right hip (principal); Z96.642 Presence of left artificial hip joint

== ENCOUNTER → 2020-01-17 | Outpatient (CLI) | payer OTHER ==
[~2020-01-17] MED LIST changes: -ACETAMINOPHEN 500 MG TAB PO ONE; +ASPI81TA86 PO; -LIDOCAINE 1% MDV 20ML VIAL SQ PRN; -LR 1,000 ML IV ONE; -ceFAZolin SOD 2 GM in IV 1 EA IV ONE
--- NOTE | 2020-01-17 10:42 | REP ---
Right lower extremity Duplex Doppler venous ultrasound: Real time compression and duplex Doppler interrogation of the right lower extremity deep venous system is performed. The right common femoral, superficial femoral and popliteal veins are fully compressible with transducer pressure and demonstrate normal spontaneous and phasic flow, without evidence of deep venous thrombosis. Impression: No evidence of deep venous thrombosis of the right lower extremity femoral popliteal venous system. Electronically Signed by Maurice Mcgowan MD 01/17/2020 10:34 A
== END ==
LOC: M RAD 09:52
PROVIDERS: ATTEND Physician Assistant Medical
DX: M79.661 Pain in right lower leg (principal)

== ENCOUNTER → 2021-02-25 | Outpatient (CLI) | payer OTHER ==
[~2021-02-25] MED LIST changes: -NASA1SPR; +RA N55SP
[2021-02-25 16:11] LABS: HEMOGLOBIN A1c 5.5 %
== END ==
LOC: M PLALAB 13:09
PROVIDERS: ATTEND Family Medicine
DX: Z13.1 Encounter for screening for diabetes mellitus (principal); Z13.220 Encounter for screening for lipoid disorders; Z12.5 Encounter for screening for malignant neoplasm of prostate

== ENCOUNTER → 2021-04-30 | Outpatient (CLI) | payer OTHER, MEDICAID ==
--- NOTE | 2021-04-30 11:37 | REP ---
INDICATION: PAIN IN RIGHT SHOULDER. COMPARISON: None. TECHNIQUE: AP, lateral, swimmer's, flexion/extension, bilateral oblique and open mouth views of the cervical spine FINDINGS: Alignment is maintained. No acute fracture/compression injury or subluxation. Focal early advanced degenerative changes at C6-7 includes endplate sclerosis, osteophytosis and disc space narrowing. Moderate degenerative changes are also identified at the C5-6 level including endplate sclerosis with marginal spurring. Remainder of the examination is age-appropriate. IMPRESSION: Focal degenerative changes at C5-6 and C6-7. <Electronically signed by Alcon Arreaga > 04/30/21 [id number]
--- NOTE | 2021-04-30 11:38 | REP ---
INDICATION: PAIN IN RIGHT SHOULDER COMPARISON: None. TECHNIQUE: Internal rotation, external rotation, and Y view. FINDINGS: No acute fracture or dislocation. The acromioclavicular and glenohumeral joints are intact. No periarticular calcifications or degenerative changes are appreciated. Sub acromial space is normal. Surrounding soft tissues are unremarkable. IMPRESSION: Normal right shoulder radiographs. <Electronically signed by Alcon Arreaga > 04/30/21 [id number]
== END ==
LOC: M PLAIMG 09:05
DX: M25.511 Pain in right shoulder (principal)

== ENCOUNTER 2021-05-20 08:48 | Outpatient (RCR) | payer OTHER | END 2021-05-24 | LOC: M PT 08:48 | PROVIDERS: ATTEND Family Medicine | DX: M25.511 Pain in right shoulder (principal); G89.29 Other chronic pain ==

== ENCOUNTER → 2021-05-27 | Outpatient (REF) ==
--- NOTE | 2021-05-27 13:33 | REP ---
INDICATION: PAIN. COMPARISON: 04/30/2021 TECHNIQUE: Three views of the right shoulder were performed. FINDINGS: The acromioclavicular and glenohumeral relationships are within normal limits. There is no acute fracture or destructive osseous lesion. IMPRESSION: Within normal limits and unchanged from the prior exam <Electronically signed by Jessee Justin > 05/27/21 [id number]
--- NOTE | 2021-05-27 13:40 | REP ---
INDICATION: PAIN. COMPARISON: 04/30/2021 a complete series TECHNIQUE: AP, lateral, swimmer's view, and open-mouth views FINDINGS: Note is again made of C5-6 and C6-7 degenerative disc disease but seen in a markedly limited fashion on this exam compared to the prior exam vertebral body height and alignment appears unchanged. The facet joints and uncovertebral joints appear unchanged. IMPRESSION: No significant change compared to the prior full series. There is the patient has been involved in trauma then CT is recommended. <Electronically signed by Jessee Justin > 05/27/21 [id number]
== END ==
LOC: M PLAIMG 11:08
PROVIDERS: ATTEND Internal Medicine
DX: M50.30 Other cervical disc degeneration, unspecified cervical region (principal); M25.511 Pain in right shoulder

== ENCOUNTER → 2021-06-23 | Outpatient (RCR) | payer OTHER ==
[~2021-06-23] MED LIST changes: +TIZA10TA PO; -TIZA4TAB4 PO
== END ==
LOC: M PT 05-27 08:18
PROVIDERS: ATTEND Family Medicine
DX: G89.29 Other chronic pain (principal); M25.511 Pain in right shoulder

== ENCOUNTER → 2022-07-15 | Outpatient (CLI) | payer OTHER, MEDICAID ==
[~2022-07-15] MED LIST changes: +ALBU2.5V10 INH; -ALBU83IN INH
== END ==
LOC: M SOG 08:00
PROVIDERS: ATTEND Orthopaedic Surgery
DX: M25.511 Pain in right shoulder (principal)

== ENCOUNTER 2025-06-18 10:23 | Emergency (ER) | payer MEDICAID, OTHER ==
[~2025-06-18] VITALS: Ht 180.3 cm; Wt 99.5 kg
[~2025-06-18 10:23] MED LIST changes: -ADV250INH INH; +ADVA1AER9 INH; -RA N55SP; +[UNRECOGNIZED DRUG - CODE]
[2025-06-18 10:45] VITALS: TEMP 98.7
[2025-06-18] MEDS ORDERED: IBUP200C33 PO (11:09)
[2025-06-18] MEDS: KETOROLAC 60 MG/2 ML VIAL IM ONE (12:11)
[2025-06-18] MEDS ORDERED: METH-1164 PO (14:09)
[2025-06-18 14:25] VITALS: BP 128/86; O2SAT 97
== END 2025-06-18 14:27 | disposition home or self-care (01) ==
LOC: M ED 10:23
DX: M54.32 Sciatica, left side (principal); F10.10 Alcohol abuse, uncomplicated; J45.909 Unspecified asthma, uncomplicated; Z96.643 Presence of artificial hip joint, bilateral; Z79.52 Long term (current) use of systemic steroids; Z79.899 Other long term (current) drug therapy; Z79.82 Long term (current) use of aspirin
CPT/HCPCS: 96372; 99283; J1885